=== PATIENT | male | born 1995 | race Caucasian/White ===

== ENCOUNTER 2017-12-14 16:41 | Outpatient (CLI) | payer OTHER ==
--- NOTE | 2017-12-14 17:21 | RAD ---
CHEST TWO VIEWS: 12/14/17 HISTORY: Cough, bronchospasm. Heart size and mediastinum are within normal limits. The lungs are clear of infiltrates. No significa nt bony findings. IMPRESSION: No active intrathoracic disease. POS: [facility]
== END 2017-12-14 16:42 | disposition home or self-care (01) ==
LOC: SCSRAD 16:41
PROVIDERS: ATTEND Family Medicine
DX: J98.01 Acute bronchospasm (principal); R05 Cough
CPT/HCPCS: 71046

== ENCOUNTER 2022-04-09 11:53 | Emergency (ER) | payer BC, SELFPAY ==
[2022-04-09 12:24] LABS: #Eosinphils 0.2 thou/uL (0.0-0.7); #Lymphocytes 3.1 thou/uL (1.20-3.40); #Monocytes 0.6 thou/uL (0.11-0.59); #Neutrophils 6.3 thou/uL (1.40-6.50); %Basophils 0.4 % (0.0-1.0); %Eosinophils 1.8 % (0.0-10.0); %Lymphocytes 30.9 % (21.0-51.0); %Monocytes 5.5 % (0.0-10.0); %Neutrophils 61.4 % (42.0-75.0); Hemoglobin 16.1 g/dL (14.0-18.0); Mean Corpuscular HGB CONC 34.5 g/dL (32.0-36.0); Mean Corpuscular Hemoglobin 30.5 pg (27.0-31.0); Mean Corpuscular Volume 88.5 fl (78.0-98.0); Mean Platelet Volume 7.4 fL (7.4-10.4); Platelet Count 309 10x3/uL (130-400); RBC Distribution Width 11.1 % (11.5-14.5); Red Blood Cell (RBC) Count 5.28 mill/uL (4.70-6.10); White Blood Cell (WBC) Count 10.2 10x3/uL (4.8-10.8)
[2022-04-09 13:07] LABS: ALT (SGPT) 62 U/L (8-55); AST (SGOT) 20 U/L (5-34); Albumin 4.5 g/dL (3.5-5.0); Alkaline Phosphatase 79 U/L (40-110); Anion Gap 14 mmol/L (10-20); BUN (Urea Nitrogen) 14 mg/dL (8.9-20.6); Bilirubin, Total 0.2 mg/dL (0.2-1.2); Calc. Creatinine Clearance 0 mL/min (70-130); Calcium 9.8 mg/dL (7.8-10.44); Carbon Dioxide 23 mmol/L (22-29); Chloride 101 mmol/L (98-107); Estimated GFR 100; Globulin 3.1 g/dL (2.4-3.5); Potassium 4.3 mmol/L (3.5-5.1); Protein, Total 7.6 g/dL (6.0-8.3); Sodium 134 mmol/L (136-145)
[2022-04-09] MEDS ORDERED: Ondansetron PF 4 MG/2 ML Vial ONE (13:22)
[2022-04-09 13:25] LABS: Glucose 582 mg/dL (70-105)
[2022-04-09 13:47] LABS: Actual Bicarbonate (HCO3v) 27 mEq/L (22-28); Base Excess 2.1 mEq/L (-2.0 to +3.0); Chloride (VBG) 102 mmol/L (98-106); Hemoglobin (Hb) 16.2 g/dL (13.2-17.3); Potassium (VBG) 4.29 mmol/L (3.70-5.30); Sodium 135.2 mmol/L (133-146); pH (venous) 7.43 (7.32-7.43)
[2022-04-09] MEDS ORDERED: Insulin Regular 300 UNITS/3 ML VIAL ONE (14:06)
== END 2022-04-09 16:04 | disposition home or self-care (01) ==
LOC: ERS 11:53
DX: E11.65 Type 2 diabetes mellitus with hyperglycemia (principal); I10 Essential (primary) hypertension; F17.210 Nicotine dependence, cigarettes, uncomplicated; Z79.4 Long term (current) use of insulin
CPT/HCPCS: 36415; 36416; 80053; 82010; 82805; 85025; 96361; 96374; 96375; J1815; J2405

== ENCOUNTER 2023-02-03 07:53 | Inpatient (IN) | payer OTHER, SELFPAY ==
[2023-02-03 08:35] LABS: #Eosinphils 0.2 thou/uL (0.0-0.7); #Monocytes 0.5 thou/uL (0.11-0.59); #Neutrophils 4.5 thou/uL (1.40-6.50); %Basophils 0.5 % (0.0-1.0); %Eosinophils 2.6 % (0.0-10.0); %Lymphocytes 32.5 % (21.0-51.0); %Monocytes 6.6 % (0.0-10.0); %Neutrophils 57.4 % (42.0-75.0); Hematocrit 45.8 % (42.0-52.0); Hemoglobin 16.3 g/dL (14.0-18.0); Mean Corpuscular HGB CONC 35.6 g/dL (32.0-36.0); Mean Corpuscular Hemoglobin 30.3 pg (27.0-31.0); Mean Corpuscular Volume 85.1 fl (78.0-98.0); Mean Platelet Volume 9.3 fL (7.4-10.4); Platelet Count 249 10x3/uL (130-400); RBC Distribution Width 11.9 % (11.5-14.5); Red Blood Cell (RBC) Count 5.38 mill/uL (4.70-6.10); White Blood Cell (WBC) Count 7.8 10x3/uL (4.8-10.8)
[2023-02-03] MEDS ORDERED: Morphine 4 MG/ML VIAL ONE ×2 (08:46→10:13)
[2023-02-03 08:57] LABS: ALT (SGPT) 47 U/L (8-55); AST (SGOT) 22 U/L (5-34); Albumin 4.7 g/dL (3.5-5.0); Alkaline Phosphatase 63 U/L (40-110); Anion Gap 13 mmol/L (10-20); BUN (Urea Nitrogen) 13 mg/dL (8.9-20.6); Bilirubin, Total 1.1 mg/dL (0.2-1.2); Calc. Creatinine Clearance 0 mL/min (70-130); Calcium 9.6 mg/dL (7.8-10.44); Carbon Dioxide 23 mmol/L (22-29); Chloride 104 mmol/L (98-107); Estimated GFR 124; Globulin 2.4 g/dL (2.4-3.5); Glucose 278 mg/dL (70-105); Potassium 4.2 mmol/L (3.5-5.1); Protein, Total 7.1 g/dL (6.0-8.3); Sodium 136 mmol/L (136-145)
[2023-02-03 09:01] LABS: Troponin I Less than 0.010 ng/mL (< 0.028)
[2023-02-03 09:02] LABS: Acetaminophen Less than 10 mcg/mL (10.0-30.0); Alcohol Less than 10.0 mg/dL (Less than 10); Lipase 25 U/L (8-78); Salicylate Less than 8.0 mg/dL (15.0-30.0)
[2023-02-03] MEDS ORDERED: Nicotine 14 MG PATCH ONE (10:19)
[2023-02-03] MEDS ORDERED: Acetaminophen 325 MG TAB PO PRN (10:29)
[2023-02-03] MEDS ORDERED: HumaLOG 300 UNITS/3 ML VIAL SC PRN (10:29)
[2023-02-03] MEDS ORDERED: Dextrose 50% Abboject 50 ML SYRINGE SLOW IVP PRN (10:29)
[2023-02-03] MEDS ORDERED: traMADol HCl 50 MG TAB PO PRN (10:29)
[2023-02-03] MEDS ORDERED: Ondansetron PF 4 MG/2 ML Vial IVP PRN (10:29)
[2023-02-03] MEDS ORDERED: Ondansetron ODT 4 MG TAB PO PRN (10:29)
[2023-02-03] MEDS ORDERED: Glucagon 1 MG/ML KIT IM PRN (10:29)
[2023-02-03] MEDS ORDERED: Promethazine HCl 25 MG/ML VIAL IM PRN (10:29)
[2023-02-03] MEDS ORDERED: Dextrose 5% in Water 1,000 ML IV PRN (10:29)
[2023-02-03] MEDS ORDERED: TETANUS, DIPHTHERIA TOX,ADULT (TDVAX) 0.5 ML VIAL IM ONE (12:00)
[2023-02-03] MEDS ORDERED: Cyclobenzaprine 10 MG TAB PO PRN (13:29)
[2023-02-03 13:48] VITALS: BMI 26.6
[2023-02-03] MEDS ORDERED: Ibuprofen 200 MG TAB PO SCH (14:00)
[2023-02-03] MEDS ORDERED: Acetaminophen 325 MG TAB PO SCH (14:00)
[2023-02-03 16:01] VITALS: BP 109/70; TEMP 97.6
[2023-02-03] MEDS ORDERED: Famotidine 20 MG TAB PO SCH (21:00)
[2023-02-03] MEDS ORDERED: Insulin Glargine 30 UNITS/0.3 ML VIAL SC SCH (21:00)
[2023-02-04] MEDS ORDERED: Lisinopril 5 MG TAB PO SCH (09:00)
[2023-02-04] MEDS ORDERED: FLU VACC QS2023-24(6MOS UP)/PF 60 MCG/0.5 ML SYRINGE IM ONE (09:00)
== END 2023-02-03 17:14 | disposition home or self-care (01) | DRG 552 ==
LOC: ERS 07:53 → SJJU 09:41
PROVIDERS: ADMIT Student in an Organized Health Care Education/Training Program; ATTEND Student in an Organized Health Care Education/Training Program
DX: M62.830 Muscle spasm of back (principal); I67.1 Cerebral aneurysm, nonruptured; V89.2XXA Person injured in unspecified motor-vehicle accident, traffic, initial encounter; Z79.899 Other long term (current) drug therapy; Z79.4 Long term (current) use of insulin; E11.9 Type 2 diabetes mellitus without complications; I10 Essential (primary) hypertension; F17.210 Nicotine dependence, cigarettes, uncomplicated; Z83.3 Family history of diabetes mellitus; Z82.49 Family history of ischemic heart disease and other diseases of the circulatory system
CPT/HCPCS: 36415; 36416; 70450; 70498; 71260; 72125; 74177; 80053; 80307; 83690; 84484; 85025; 96374; 96376; J1815; J2270

== ENCOUNTER 2023-02-07 11:28 | Emergency (ER) | payer OTHER, SELFPAY ==
[2023-02-07] MEDS ORDERED: HYDROcodone/Acetaminophen 5/325 mg Tablet ONE (12:20)
[2023-02-07] MEDS ORDERED: Orphenadrine Citrate 60 MG/2 ML VIAL ONE (12:20)
== END 2023-02-07 13:00 | disposition home or self-care (01) ==
LOC: ERS 11:28
DX: S13.4XXA Sprain of ligaments of cervical spine, initial encounter (principal); M62.830 Muscle spasm of back; I10 Essential (primary) hypertension; E11.9 Type 2 diabetes mellitus without complications; F17.210 Nicotine dependence, cigarettes, uncomplicated; Z79.4 Long term (current) use of insulin; Z79.84 Long term (current) use of oral hypoglycemic drugs; Z79.899 Other long term (current) drug therapy; V89.2XXA Person injured in unspecified motor-vehicle accident, traffic, initial encounter
CPT/HCPCS: 71045; 96372; J2360

== ENCOUNTER 2023-04-30 21:57 | Emergency (ER) | payer OTHER, SELFPAY ==
[2023-04-30] MEDS ORDERED: HYDROcodone/Acetaminophen 5/325 mg Tablet ONE (22:26)
== END 2023-04-30 22:57 | disposition home or self-care (01) ==
LOC: ERS 21:57
DX: H65.01 Acute serous otitis media, right ear (principal); E11.9 Type 2 diabetes mellitus without complications; I10 Essential (primary) hypertension; F17.210 Nicotine dependence, cigarettes, uncomplicated
CPT/HCPCS: 99282

== ENCOUNTER 2023-05-03 01:05 | Emergency (ER) | payer SELFPAY | END 2023-05-03 01:30 | disposition home or self-care (01) | LOC: ERS 01:05 | DX: H66.91 Otitis media, unspecified, right ear (principal); E11.9 Type 2 diabetes mellitus without complications; I10 Essential (primary) hypertension; F17.210 Nicotine dependence, cigarettes, uncomplicated | CPT/HCPCS: 99282 ==

== ENCOUNTER 2023-05-11 22:18 | Emergency (ER) | payer SELFPAY ==
[2023-05-11] MEDS ORDERED: HYDROcodone/Acetaminophen 5/325 mg Tablet ONE (23:26)
== END 2023-05-11 23:30 | disposition home or self-care (01) ==
LOC: ERS 22:18
DX: H66.91 Otitis media, unspecified, right ear (principal); I10 Essential (primary) hypertension; E11.9 Type 2 diabetes mellitus without complications; F17.210 Nicotine dependence, cigarettes, uncomplicated; Z79.4 Long term (current) use of insulin; Z79.899 Other long term (current) drug therapy
CPT/HCPCS: 99282